=== PATIENT | female | born 1990 | race Two or more races ===

== ENCOUNTER 2016-11-06 11:22 | Emergency (ER) | payer OTHER ==
[~2016-11-06 11:22] MED LIST: EPINEPHRINE INJ 1 MG/10 ML DISP.SYRIN ONE
--- NOTE | 2016-11-06 12:01 | ER Document Report ---
ED Medical Screen (RME) - General Chief Complaint: Breathing Difficulty Stated Complaint: DIFFICULTY BREATHING Mode of Arrival: Wheelchair Information source: Patient TRAVEL OUTSIDE OF THE [place] IN LAST 30 DAYS: No - HPI Onset: Yesterday - LAST PM Onset/Duration: Gradual Quality of pain: Other - SORENESS Severity: Mild Associated Symptoms: Cough (productive). denies: Chills, Fever, Sweating Exacerbated by: Coughing, Deep breathing Relieved by: Denies Similar symptoms previously: Yes - FEB, LUNG INFECTION - Related Data Smoking: Non-smoker Frequency of alcohol use: None Drug Abuse: None Allergies/Adverse Reactions: No Known Drug Allergies Allergy (Verified 11/06/16 11:46) Past Medical History - General Information source: Patient - Social History Cigarette use (# per day): No Chew tobacco use (# tins/day): No Frequency of alcohol use: None Drug Abuse: None Lives with: Spouse/Significant other - Past Medical History Cardiac Medical History: Reports: None Neurological Medical History: Reports: None Endocrine Medical History: Reports: None Renal/ Medical History: Reports: None. Denies: Hx Peritoneal Dialysis Surgical Hx: Negative Review of Systems - Review of Systems Constitutional: No symptoms reported EENT: No symptoms reported Cardiovascular: See HPI Respiratory: See HPI Gastrointestinal: No symptoms reported Genitourinary: No symptoms reported Female Genitourinary: No symptoms reported. denies: Musculoskeletal: No symptoms reported Skin: No symptoms reported Neurological/Psychological: No symptoms reported Physical Exam - Vital signs Vitals: Temp Pulse Resp BP Pulse Ox 97.8 F 119 H 32 H 109/76 86 L 11/06/16 11:43 11/06/16 11:43 11/06/16 11:43 11/06/16 11:43 11/06/16 11:43 Interpretation: Tachycardic, Hypoxic, Tachypneic - General General appearance: Alert, Anxious In distress: Mild - Respiratory Respiratory status: Respiratory distress - MILD Course - Vital Signs Vital signs: Temp Pulse Resp BP Pulse Ox 97.8 F 119 H 32 H 109/76 86 L 11/06/16 11:43 11/06/16 11:43 11/06/16 11:43 11/06/16 11:43 11/06/16 11:43
[2016-11-06] MEDS ORDERED: PREDNISONE 20 MG TABLET PO ONE (12:02)
[2016-11-06] MEDS ORDERED: ALBUTEROL SULFATE 0.083% NEB 2.5 MG/3 ML AMPUL NEB ONE ×3 (12:02→16:00)
[2016-11-06] MEDS ORDERED: NORMAL SALINE 1000 ML 1,000 ML IV ONE (12:46)
[2016-11-06] MEDS ORDERED: IPRATROPIUM/ALBUTEROL 0.5-2.5 MG/3 ML AMPUL NEB ONE ×5 (12:47→16:00)
[2016-11-06] MEDS ORDERED: TERBUTALINE SULFATE INJ/PF 1 MG/1 ML SDV ONE (12:49)
[2016-11-06] MEDS ORDERED: MAGNESIUM SULFATE/D5W 1 GM/100 ML RTUPB IV ONE ×2 (12:49→13:04)
[2016-11-06] MEDS ORDERED: ETOMIDATE INJ/PF 20 MG/10 ML SDV IV ONE (12:50)
[2016-11-06] MEDS ORDERED: KETAMINE HCL INJ 500 MG/10 ML VIAL ONE (13:00)
--- NOTE | 2016-11-06 13:09 | ER Document Report ---
ED Respiratory Problem - General Time seen by provider: 12:46 Mode of Arrival: Ambulatory Information source: Patient TRAVEL OUTSIDE OF THE [place] IN LAST 30 DAYS: No - HPI Patient complains to provider of: Other - Respiratory distress Associated symptoms: Other - See above <ALEX MARIANO - Last Filed: 11/06/16 16:11> <BERTA LUCAS - Last Filed: 11/06/16 20:01> - General Chief Complaint: Respiratory Distress Stated Complaint: Respiratory distress Notes: Patient is a 26 year old female, with a past medical history including asthma, who presents to the emergency department with her in respiratory distress. Per patient has a history of asthma exacerbations and has had to be intubated in the past. Patient became unconscious and blue in triage and had agonal respirations before becoming apneic. (ALEX MARIANO) - Related Data Allergies/Adverse Reactions: No Known Drug Allergies Allergy (Verified 11/06/16 11:46) Past Medical History - General Information source: Patient - Social History Smoking Status: Unknown if Ever Smoked Cigarette use (# per day): No Chew tobacco use (# tins/day): No Frequency of alcohol use: None Drug Abuse: None Lives with: Spouse/Significant other Family History: Reviewed & Not Pertinent Patient has suicidal ideation: No Patient has homicidal ideation: No Pulmonary Medical History: Reports: Hx Asthma <ALEX MARIANO - Last Filed: 11/06/16 16:11> Review of Systems - Review of Systems -: Yes ROS unobtainable due to patient's medical condition - unconscious <ALEX MARIANO - Last Filed: 11/06/16 16:11> Physical Exam - Vital signs Interpretation: Hypoxic, Tachypneic - General General appearance: Unresponsive In distress: Severe - HEENT Head: Normocephalic, Atraumatic Pupils: PERRL - Respiratory Respiratory status: Respiratory distress, Agonal respirations, Cyanosis, Pursed lip breathing Breath sounds: Decreased air movement - Cardiovascular Rhythm: Bradycardia - Abdominal Tenderness: Nontender - Extremities General upper extremity: Normal inspection General lower extremity: Normal inspection - Neurological Neuro grossly intact: No [place] Coma Scale Eye Opening: None [place] Coma Scale Verbal: None Vivi Coma Scale Motor: None Vivi Coma Scale Total: 3 - Skin Skin Temperature: Cool Skin Color: Cyanotic <BERTA LUCAS - Last Filed: 11/06/16 20:01> - Vital signs Vitals: Temp Pulse Resp BP Pulse Ox 97.8 F 119 H 32 H 109/76 86 L 11/06/16 11:43 11/06/16 11:43 11/06/16 11:43 11/06/16 11:43 11/06/16 11:43 Course - Laboratory Result Diagrams: 11/06/16 13:21 11/06/16 13:21 - Consults [facility] Time consulted: 13:20 Hospitalist Time consulted: 13:15 <ALEX MARIANO - Last Filed: 11/06/16 16:11> - Laboratory Result Diagrams: 11/06/16 13:21 11/06/16 13:21 - Diagnostic Test Radiology reviewed: Image reviewed, Reports reviewed - EKG Interpretation by Me EKG shows normal: Sinus rhythm Rate: Tachycardia <BERTA LUCAS - Last Filed: 11/06/16 20:01> - Re-evaluation Re-evalutation: 11/06/16 13:25 Patient is a 26-year-old female who comes in with difficulty breathing. Patient became extremely dyspneic and cyanotic in triage and was brought back to the main emergency department. Patient was cyanotic, agonal, and unresponsive when I walked into the room. Palpated her pulse. Patient had a pulse and then became very bradycardic. CPR was initiated. Epinephrine was given. Patient was intubated, and given DuoNeb. Patient was also given thiamine oh, magnesium, terbutaline, and ketamine. Patient's had 2 rounds of CPR and epinephrine before return return of pulses were palpable. Patient has been in a sinus tachycardia since that time. Patient was discussed with the hospitalist service here, but due to her respiratory and having CPR in the emergency department, they would prefer she be transferred to a higher level of care for possible cooling if needed. Patient was discussed with [facility] and will be flown there. Patient initial blood gas shows that she is extremely acidotic. Initially sedation was withheld as we're trying to assess her neurologic status. Patient became tachycardic, hypoxic, and hypertensive so was started on propofol and given ketamine for sedation. 11/06/16 16:05 Patient is in stable condition for transfer by air at this time. Delay of transfer due to weather and lack of transport prior to this time. (BERTA LUCAS) - Vital Signs Vital signs: Temp Pulse Resp BP Pulse Ox 97.8 F 119 H 22 H 136/97 H 95 11/06/16 11:43 11/06/16 11:43 11/06/16 15:53 11/06/16 15:53 11/06/16 15:53 - Laboratory Laboratory results interpreted by me: 11/06/16 11/06/16 11/06/16 13:21 13:21 13:21 WBC 14.7 H MCHC 31.9 L Seg Neutrophils % 83.1 H Lymphocytes % 9.3 L Absolute Neutrophils 12.2 H PT 16.3 H Carbonic Acid ABG pH ABG pCO2 ABG pO2 ABG HCO3 ABG Total CO2 ABG O2 Saturation VBG pH VBG pCO2 VBG HCO3 Chloride 108 H Carbon Dioxide 17 L Glucose 342 H Lactic Acid Calcium 8.1 L Total Protein 6.0 L Albumin 3.3 L 11/06/16 11/06/16 11/06/16 13:21 13:25 14:13 WBC MCHC Seg Neutrophils % Lymphocytes % Absolute Neutrophils PT Carbonic Acid 2.55 H ABG pH 6.89 L* ABG pCO2 84.8 H* ABG pO2 221.2 H ABG HCO3 15.9 L ABG Total CO2 18.5 L ABG O2 Saturation 98.7 H VBG pH 6.99 L* VBG pCO2 72.8 H* VBG HCO3 17.2 L Chloride Carbon Dioxide Glucose Lactic Acid 8.0 H Calcium Total Protein Albumin - Consults [facility] Reason for consultation: 13[facility] transfer center will call CICU attending and get back to me 1326 Dr. Rojas agrees to accept transfer of patient (ALEX MARIANO) Hospitalist Reason for consultation: 1315 Dr. White will call Dr. Stovall to discuss patients condition and get back to me 1317 Dr. White recommends transferring patient (ALEX MARIANO) Procedures - Intubation Orotracheal Airway evaluation: Normal anatomy, Copious secretions Mallampati Classification: Class 2 Intubation method: Orotracheal Equipment used: Glidescope ETT size: 7.0 ETT secured at: Teeth Breath Sounds after Intubation: Equal End tidal CO2 confirmed: Yes <BERTA LUCAS - Last Filed: 11/06/16 20:01> Critical Care Note - Critical Care Note Total time excluding time spent on procedures (mins): 200 - evaluation and management of respiratory distress, respiratory arrest, bradycardia, continued management of ventilated patient, coordination of transfer, multiple re- evaluations, counseling of <BERTA LUCAS - Last Filed: 11/06/16 20:01> Discharge <ALEX MARIANO - Last Filed: 11/06/16 16:11> <BERTA LUCAS - Last Filed: 11/06/16 20:01> - Discharge Clinical Impression: Respiratory arrest before cardiac arrest, Bradycardia Condition: Fair Disposition: [facility] Scribe Attestation: 11/06/16 20:00 I personally performed the services described in the documentation, reviewed and edited the documentation which was dictated to the scribe in my presence, and it accurately records my words and actions. (BERTA LUCAS) Scribe Documentation - Scribe Written by Juilo:: julio Casillas, 11/06/16, 1407 acting as scribe for :: Neo <ALEX MARIANO - Last Filed: 11/06/16 16:11>
[2016-11-06] MEDS ORDERED: KETAMINE HCL INJ 500 MG/10 ML VIAL IV ONE ×2 (13:14)
[2016-11-06] MEDS ORDERED: PROPOFOL 100 ML IV PRN (13:18)
[2016-11-06] MEDS ORDERED: PROPOFOL 100 ML IV ONE (13:21)
[2016-11-06 13:35] LABS: ABSOLUTE EOSINOPHILS # (AUTO) 0.5 10^3/uL (0.0-0.6); ABSOLUTE LYMPHOCYTES (AUTO) 1.4 10^3/uL (0.5-4.7); ABSOLUTE MONOCYTES (AUTO) 0.5 10^3/uL (0.1-1.4); ABSOLUTE NEUT (AUTO) 12.2 10^3/uL (1.7-8.2); BASOPHILS % (AUTO) 0.3 % (0-2); EOSINOPHILS % (AUTO) 3.6 % (0-6); HEMOGLOBIN 12.8 g/dL (12.0-15.5); HGB HCT DIFFERENCE -1.6; LYMPHOCYTES % (AUTO) 9.3 % (13-45); MEAN CORPUSCULAR HGB CONC 31.9 g/dL (32.0-36.0); MEAN CORPUSCULAR VOLUME 91 fl (80-97); MONOCYTES % (AUTO) 3.7 % (3-13); RED CELL DISTRIBUTION WIDTH 12.7 % (11.5-14.0); SEGMENTED NEUTROPHILS % (AUTO) 83.1 % (42-78); WHITE BLOOD COUNT 14.7 10^3/uL (4.0-10.5)
[2016-11-06 13:41] LABS: PROTHROMBIN TIME 16.3 SEC (11.4-15.4)
[2016-11-06 13:53] LABS: ALANINE AMINOTRANSFERASE 24 U/L (9-52); ALBUMIN 3.3 g/dL (3.5-5.0); ALKALINE PHOSPHATASE 47 U/L (38-126); ANION GAP 15 (5-19); ASPARTATE AMINO TRANSFERASE 31 U/L (14-36); BILIRUBIN,DIRECT 0.1 mg/dL (0.0-0.4); BILIRUBIN,TOTAL 0.5 mg/dL (0.2-1.3); BLOOD UREA NITROGEN 7 mg/dL (7-20); CALCIUM 8.1 mg/dL (8.4-10.2); CARBON DIOXIDE 17 mmol/L (22-30); CHLORIDE 108 mmol/L (98-107); GLUCOSE 342 mg/dL (75-110); SODIUM 140.3 mmol/L (137-145)
[2016-11-06] MEDS ORDERED: ONDANSETRON HCL INJ/PF 4 MG/2 ML SDV IV ONE (13:57)
[2016-11-06 14:37] LABS: VENOUS BLOOD BASE EXCESS -15.1 mmol/L; VENOUS BLOOD HCO3 17.2 mmol/L (20-32)
[2016-11-06 14:40] LABS: VENOUS BLOOD PCO2 72.8 mmHg (35-63); VENOUS BLOOD PH 6.99 (7.30-7.42)
[2016-11-06 15:18] LABS: ARTERIAL BLOOD BASE EXCESS -18.4 mmol/L; ARTERIAL BLOOD O2 SATURATION 98.7 % (94-98)
[2016-11-06 16:18] VITALS: BP 136/97
--- NOTE | 2016-11-06 19:05 | EKG REPORT ---
SEVERITY:- ABNORMAL ECG - SINUS TACHYCARDIA NONSPECIFIC T ABNORMALITIES, INFERIOR LEADS : Confirmed by: Nat Hobson MD 06-Nov-2016 19:05:22
== END 2016-11-06 15:57 | disposition short-term general hospital (02) ==
LOC: ER 11:22
PROC: 0BH17EZ Insertion of Endotracheal Airway into Trachea, Via Natural or Artificial Opening (ICD-10-PCS; principal; 2016-11-06)
DX: I46.9 Cardiac arrest, cause unspecified (principal); J45.909 Unspecified asthma, uncomplicated; R00.1 Bradycardia, unspecified; R06.00 Dyspnea, unspecified; R23.0 Cyanosis; E87.2 Acidosis; R09.02 Hypoxemia
CPT/HCPCS: 93005; 94640; 99291; 99292; 96374; 36415; 87040; 82803 ×2; 84702; 85025; 85610; 80053; 83605; 71020; 71010; 93010; 36600; 31500; J0171; J7512; J2405